=== PATIENT | male | born 1965 | race Caucasian/White ===

== ENCOUNTER → 2025-08-22 | Outpatient (CLI) | payer OTHER, SELFPAY ==
--- NOTE | 2025-08-22 08:05 | RAD_ITS ---
PROCEDURE: SHOULDER MIN 2 VIEWS 08/22/2025 REASON FOR EXAM: ARTHRITIS TECHNIQUE: Procedure Code: RADSH Modality: DX Procedure: SHOULDER MIN 2 VIEWS COMPARISON: None FINDINGS: Marked degree of joint space narrowing of the glenohumeral joint with degenerative spur formation in keeping with osteoarthritis. RAD/Shoulder min 2 Views IMPRESSION: Marked degree of joint space narrowing with the spur formation in keeping with osteoarthritis. Reading Location: [facility]
--- NOTE | 2025-08-22 08:05 | RAD_ITS ---
PROCEDURE: HAND MIN 3 VIEWS 08/22/2025 REASON FOR EXAM: ARTHRITIS TECHNIQUE: Procedure Code: GEORGIE Modality: DX Procedure: HAND MIN 3 VIEWS COMPARISON: None FINDINGS: No bony abnormality is seen. No evidence of arthritic changes. RAD/Hand Min 3 Views IMPRESSION: NEGATIVE HAND SERIES Reading Location: [id number]
== END | disposition home or self-care (01) ==
LOC: RAD 07:56
PROVIDERS: Referring Provider Chiropractor; Visit Provider Chiropractor
DX: M13.80 Other specified arthritis, unspecified site (principal)
CPT/HCPCS: 73030; 73130